=== PATIENT | male | born 1940 | race Caucasian/White ===

== ENCOUNTER 2016-12-29 14:24 | Inpatient (IN) | payer OTHER ==
[~2016-12-29] VITALS: Ht 170.2 cm; Wt 83.5 kg
[2016-12-29 15:11] LABS: BASOPHIL COUNT 0.1 K/uL (0-0.1); EOSINOPHIL (%) 3.4 % (0-5); EOSINOPHIL COUNT 0.5 K/uL (0-0.3); HEMATOCRIT 42.8 % (38.0-50.0); IMMATURE GRANULOCYTE (%) 0.5 % (0.0-0.7); IMMATURE GRANULOCYTE COUNT 0.1 K/uL; INSTRUMENT ABS NEUTROPHIL CT 11.6 K/uL; LYMPHOCYTE COUNT 1.3 K/uL (1.0-2.8); MCH 28.5 PG (29.0-34.0); MCHC 33.2 G/DL (30.0-36.0); MCV 85.9 FL (86-99); MEAN PLAT.VOLUME 9.3 uM^3 (9.0-12.4); MONOCYTE (%) 12.4 % (3-12); MONOCYTE COUNT 1.9 K/uL (0-0.8); NEUTROPHIL (%) 75.1 % (45-76); NEUTROPHIL COUNT 11.6 K/uL (1.8-6.4); PLATELET COUNT 331 K/uL (156-360); RBC DIS.WIDTH-CV 13.4 % (11.8-14.6); RBC DIS.WIDTH-SD 41.6 % (39-53); RED BLOOD COUNT 4.98 M/uL (4.00-5.50); WHITE BLOOD COUNT 15.4 K/uL (4.1-10.2)
[2016-12-29 15:19] LABS: INTER. NORMALIZED RATIO 1.2; PROTHROMBIN TIME 13.8 SEC (10.2-12.9)
[2016-12-29 15:21] LABS: CHLORIDE 102 mEq/L (99-109); POTASSIUM 4.2 mEq/L (3.7-5.4); SODIUM 138 mEq/L (136-147)
[2016-12-29 15:22] LABS: PTT 39.2 SEC (25-37)
[2016-12-29 15:23] LABS: GLUCOSE 208 mg/dL (70-99)
[2016-12-29 15:24] LABS: ANION GAP 13 MEQ/L (2-14)
[2016-12-29 15:27] LABS: GFR ESTIMATE (CALCULATED) > 59 mL/min/; UREA NITROGEN (BUN) 11 mg/dL (9-23)
[2016-12-29 15:32] LABS: TROP-I INTERPRETATION NEGATIVE; TROPONIN-I 0.02 ng/mL (0.0-0.30)
[2016-12-29] MEDS ORDERED: FOLIC ACID1 MG PO (18:59)
[2016-12-29] MEDS ORDERED: COMPAZINE10 MG PO (19:00)
[2016-12-29] MEDS ORDERED: DECADRON4 MG PO (19:01)
[2016-12-29] MEDS ORDERED: VENTOLIN HFA18 GM IH (19:01)
[2016-12-29] MEDS ORDERED: ADVAIR HFA120 INHALA IH (19:01)
[2016-12-29] MEDS ORDERED: ZOFRAN8 MG PO (19:01)
[2016-12-29] MEDS ORDERED: GLUCOSAMINE CH1 EAC7 PO (19:02)
[2016-12-29] MEDS ORDERED: CARVEDILOL3.125 MG PO (19:02)
[2016-12-29] MEDS ORDERED: VITAMIN D31000 UNIT PO (19:02)
[2016-12-29] MEDS ORDERED: LIPITOR40 MG PO (19:02)
[2016-12-29] MEDS ORDERED: GLUCOPHAGE500 MG PO (19:02)
[2016-12-29] MEDS ORDERED: CALCIUM-MAGNES1 EA11 PO (19:03)
[2016-12-29] MEDS ORDERED: TYLENOL EXTRA500 MG PO (19:03)
[2016-12-29 20:40] VITALS: BP 176/85
[2016-12-29 21:52] LABS: POINT-OF-CARE METER ID UU13113725
[2016-12-29 23:33] VITALS: BP 174/76
[2016-12-30 05:14] VITALS: BP 160/83
[2016-12-30 06:18] LABS: HEMATOCRIT 39.1 % (38.0-50.0); MCH 29.4 PG (29.0-34.0); MCHC 33.5 G/DL (30.0-36.0); MCV 87.7 FL (86-99); MEAN PLAT.VOLUME 9.3 uM^3 (9.0-12.4); PLATELET COUNT 298 K/uL (156-360); RBC DIS.WIDTH-CV 13.4 % (11.8-14.6); RBC DIS.WIDTH-SD 43.2 % (39-53); RED BLOOD COUNT 4.46 M/uL (4.00-5.50); WHITE BLOOD COUNT 12.4 K/uL (4.1-10.2)
[2016-12-30 06:47] LABS: ALKALINE PHOSPHATASE 112 IU/L (3-129); ANION GAP 11 MEQ/L (2-14); CHLORIDE 103 MEQ/L (99-109); GFR ESTIMATE (CALCULATED) > 59 mL/min/; GLUCOSE 132 mg/dL (70-99); POTASSIUM 3.9 MEQ/L (3.7-5.4); SAMPLE HEMOLYSIS CHECK 0; SAMPLE ICTERIC CHECK 0; SAMPLE LIPEMIA CHECK 0; SODIUM 143 MEQ/L (136-147); TOTAL BILIRUBIN 0.8 MG/DL (0.0-1.0); UREA NITROGEN (BUN) 9 mg/dL (9-23)
[2016-12-30 07:51] VITALS: BP 140/78
[2016-12-30 12:17] LABS: POINT-OF-CARE METER ID UU13113774
[2016-12-30 13:03] VITALS: BP 168/80
[2016-12-30 15:47] LABS: HDL CHOLESTEROL 41 MG/DL (Desirable>=40); LDL CHOLESTEROL 37 mg/dL (Desirable<100); NON-HDL CHOLESTEROL 57 mg/dL (Desirable<160); TOTAL CHOLESTEROL 98 mg/dL (Desirable<200); TRIGLYCERIDES 102 MG/DL (Normal: <150)
[2016-12-30 16:02] VITALS: BP 174/80
[2016-12-30 16:32] LABS: POINT-OF-CARE METER ID UU13113725
[2016-12-30 20:40] VITALS: BP 189/91
[2016-12-30 21:53] LABS: POINT-OF-CARE METER ID UU13113717
[2016-12-30 23:59] VITALS: BP 129/56; BP 162/79
[2016-12-31 00:24] VITALS: BP 179/84
[2016-12-31 06:07] LABS: ADD MIUA? NO; BILIRUBIN NEGATIVE; BLOOD NEGATIVE; COLOR YELLOW ((YELLOW)); GLUCOSE (STRIP) 150; KETONES 80; LEUKOCYTES NEGATIVE; NITRITE NEGATIVE; PROTEIN (STRIP) NEGATIVE; SPECIFIC GRAVITY 1.019 (1.000-1.030); UCUL ADDED? NO
[2016-12-31 06:49] LABS: BASOPHIL COUNT 0.1 K/uL (0-0.1); EOSINOPHIL (%) 7.4 % (0-5); EOSINOPHIL COUNT 0.9 K/uL (0-0.3); HEMATOCRIT 38.8 % (38.0-50.0); IMMATURE GRANULOCYTE (%) 0.4 % (0.0-0.7); IMMATURE GRANULOCYTE COUNT 0.1 K/uL; INSTRUMENT ABS NEUTROPHIL CT 7.7 K/uL; LYMPHOCYTE COUNT 1.3 K/uL (1.0-2.8); MCH 28.5 PG (29.0-34.0); MCV 86.4 FL (86-99); MEAN PLAT.VOLUME 9.2 uM^3 (9.0-12.4); MONOCYTE (%) 14.7 % (3-12); MONOCYTE COUNT 1.7 K/uL (0-0.8); NEUTROPHIL (%) 66.2 % (45-76); NEUTROPHIL COUNT 7.7 K/uL (1.8-6.4); PLATELET COUNT 329 K/uL (156-360); RBC DIS.WIDTH-CV 13.2 % (11.8-14.6); RBC DIS.WIDTH-SD 41.6 % (39-53); RED BLOOD COUNT 4.49 M/uL (4.00-5.50); WHITE BLOOD COUNT 11.6 K/uL (4.1-10.2)
[2016-12-31 07:04] VITALS: BP 163/77
[2016-12-31 07:35] LABS: POINT-OF-CARE METER ID UU13113717
[2016-12-31 07:42] LABS: ALKALINE PHOSPHATASE 105 IU/L (3-129); ANION GAP 10 MEQ/L (2-14); CHLORIDE 101 MEQ/L (99-109); GFR ESTIMATE (CALCULATED) > 59 mL/min/; GLUCOSE 115 mg/dL (70-99); POTASSIUM 3.8 MEQ/L (3.7-5.4); SAMPLE HEMOLYSIS CHECK 0; SAMPLE ICTERIC CHECK 0; SAMPLE LIPEMIA CHECK 0; SODIUM 140 MEQ/L (136-147); TOTAL BILIRUBIN 0.9 MG/DL (0.0-1.0); UREA NITROGEN (BUN) 11 mg/dL (9-23)
[2016-12-31 11:36] VITALS: BP 134/64
[2016-12-31 12:25] LABS: POINT-OF-CARE METER ID UU14188625
[2016-12-31 15:25] VITALS: BP 164/84
[2016-12-31 19:22] VITALS: BP 167/80
[2016-12-31 23:46] VITALS: BP 169/82
[2016-12-31 23:48] LABS: POINT-OF-CARE METER ID UU13113717
[2017-01-01 00:45] VITALS: BP 167/80
[2017-01-01 01:00] VITALS: BP 160/70
[2017-01-01 03:36] VITALS: BP 155/79
[2017-01-01 07:55] VITALS: BP 165/90
[2017-01-01 08:32] LABS: POINT-OF-CARE METER ID UU14188625
[2017-01-01 12:09] LABS: POINT-OF-CARE METER ID UU13113717
[2017-01-01] MEDS ORDERED: ASPIR-LOW81 MG PO (12:17)
[2017-01-01 12:20] LABS: Estimated Average Glucose 166 mg/dL (70-123); HEMOGLOBIN A1c (GLYCOHEMOGLOB) 7.4 % HGB (Below 5.7)
[2017-01-01 12:28] VITALS: BP 142/71
[2017-01-01] MEDS ORDERED: HEPARIN SO5000 UNIT3 SC (15:17)
[2017-01-01] MEDS ORDERED: SALINE FLUSH 5 M5 ML IV (15:19)
[2017-01-01] MEDS ORDERED: HEPARIN LOCK 1005 ML IV (15:19)
[2017-01-01] MEDS ORDERED: NOVOLOG100 UNIT/1 SC (15:20)
[2017-01-01] MEDS ORDERED: ANTIVERT25 MG PO (15:21)
== END 2017-01-01 14:10 | DRG 64 ==
LOC: EME 14:24 → EDOF 19:27 → 5SOUTH 19:27 → ENRESERV 19:30 → 5EAST 19:56 → EDOF 20:00 → ENRESERV 20:00 → 5EAST 20:36 → CANRESERV 12-30 18:08 → ENRESERV 12-30 18:08 → 5SOUTH 12-30 20:28
PROVIDERS: Emergency Medicine; Hospitalist; Internal Medicine
DX: I63.9 Cerebral infarction, unspecified (principal); J96.01 Acute respiratory failure with hypoxia; E11.9 Type 2 diabetes mellitus without complications; I48.91 Unspecified atrial fibrillation; C34.91 Malignant neoplasm of unspecified part of right bronchus or lung; Z68.28 Body mass index [BMI] 28.0-28.9, adult; Z85.118 Personal history of other malignant neoplasm of bronchus and lung; Z86.73 Personal history of transient ischemic attack (TIA), and cerebral infarction without residual deficits
CPT/HCPCS: 70450; 70551; 71010; 71275; 80048; 80053; 80061; 81003; 82948; 83036; 84484; 85025; 85027; 85610; 85730; 93005; 94640; 94799; 99202; 99281; 99285; J1644; J1815; J2405; J7030; S0028

== ENCOUNTER 2017-01-01 12:53 | Inpatient (IN) | payer OTHER ==
[~2017-01-01] VITALS: Ht 170.2 cm; Wt 81.0 kg
[~2017-01-01 12:53] MED LIST: ADVAIR HFA120 INHALA IH; ASPIR-LOW81 MG PO; CALCIUM-MAGNES1 EA11 PO; CARVEDILOL3.125 MG PO; COMPAZINE10 MG PO; DECADRON4 MG PO; FOLIC ACID1 MG PO; GLUCOPHAGE500 MG PO; GLUCOSAMINE CH1 EAC7 PO; LIPITOR40 MG PO; TYLENOL EXTRA500 MG PO; VENTOLIN HFA18 GM IH; VITAMIN D31000 UNIT PO; ZOFRAN8 MG PO
[2017-01-01 14:20] VITALS: BP 171/78
[2017-01-01] MEDS ORDERED: HEPARIN SO5000 UNIT3 SC (15:17)
[2017-01-01] MEDS ORDERED: SALINE FLUSH 5 M5 ML IV (15:19)
[2017-01-01] MEDS ORDERED: HEPARIN LOCK 1005 ML IV (15:19)
[2017-01-01] MEDS ORDERED: NOVOLOG100 UNIT/1 SC (15:20)
[2017-01-01] MEDS ORDERED: ANTIVERT25 MG PO (15:21)
[2017-01-01 17:00] LABS: POINT-OF-CARE METER ID UU14174215
[2017-01-01 17:14] VITALS: BP 152/74
[2017-01-01 20:41] LABS: POINT-OF-CARE METER ID UU14174215
[2017-01-01 23:06] VITALS: BP 137/77
[2017-01-02 04:52] LABS: HEMATOCRIT 42.8 % (38.0-50.0); MCH 28.9 PG (29.0-34.0); MCHC 33.9 G/DL (30.0-36.0); MCV 85.4 FL (86-99); PLATELET COUNT 354 K/uL (156-360); RBC DIS.WIDTH-CV 13.2 % (11.8-14.6); RBC DIS.WIDTH-SD 41.2 % (39-53); RED BLOOD COUNT 5.01 M/uL (4.00-5.50); WHITE BLOOD COUNT 10.6 K/uL (4.1-10.2)
[2017-01-02 05:03] LABS: CHLORIDE 99 mEq/L (99-109); POTASSIUM 3.8 mEq/L (3.7-5.4); SODIUM 139 mEq/L (136-147)
[2017-01-02 05:05] LABS: GLUCOSE 126 mg/dL (70-99)
[2017-01-02 05:06] LABS: ANION GAP 12 MEQ/L (2-14)
[2017-01-02 05:07] LABS: TOTAL BILIRUBIN 0.9 mg/dL (0.0-1.0)
[2017-01-02 05:08] LABS: ALKALINE PHOSPHATASE 109 IU/L (3-129)
[2017-01-02 05:09] LABS: GFR ESTIMATE (CALCULATED) > 59 mL/min/
[2017-01-02 05:10] LABS: UREA NITROGEN (BUN) 13 mg/dL (9-23)
[2017-01-02 05:50] VITALS: BP 142/70
[2017-01-02 07:03] LABS: POINT-OF-CARE METER ID UU14174215
[2017-01-02 11:11] LABS: POINT-OF-CARE METER ID UU14174215
[2017-01-02 15:22] VITALS: BP 144/73
[2017-01-02 16:42] LABS: POINT-OF-CARE METER ID UU13113720
[2017-01-02 20:48] LABS: POINT-OF-CARE METER ID UU14174215
[2017-01-03 04:50] VITALS: BP 157/84
[2017-01-03 07:10] LABS: POINT-OF-CARE METER ID UU14174215; POINT-OF-CARE USER ID AHSSSJB31
[2017-01-03 07:25] VITALS: BP 152/76
[2017-01-03 11:12] LABS: POINT-OF-CARE METER ID UU14174215; POINT-OF-CARE USER ID AHSSSJB31
[2017-01-03 15:23] VITALS: BP 138/74
[2017-01-03 16:32] LABS: POINT-OF-CARE METER ID UU13113720
[2017-01-04 05:20] VITALS: BP 136/92
[2017-01-04 07:09] LABS: POINT-OF-CARE METER ID UU14174215
[2017-01-04 07:33] VITALS: BP 144/70
[2017-01-04 15:05] VITALS: BP 154/71
[2017-01-04 16:13] LABS: POINT-OF-CARE METER ID UU13113720
[2017-01-05 04:16] VITALS: BP 138/76
[2017-01-05 06:56] LABS: POINT-OF-CARE METER ID UU13113720
[2017-01-05 14:56] VITALS: BP 145/77
[2017-01-05 15:58] LABS: POINT-OF-CARE METER ID UU13113720
[2017-01-06 04:28] VITALS: BP 122/62
[2017-01-06 09:24] LABS: POINT-OF-CARE METER ID UU13113720; POINT-OF-CARE USER ID ENVGAF
[2017-01-06 15:02] VITALS: BP 134/79
[2017-01-06 16:05] LABS: POINT-OF-CARE METER ID UU13113720
[2017-01-07 04:56] VITALS: BP 142/70
[2017-01-07 06:39] LABS: POINT-OF-CARE METER ID UU13113720; POINT-OF-CARE USER ID ENVGAF
[2017-01-07 15:13] VITALS: BP 135/74
[2017-01-07 16:48] LABS: POINT-OF-CARE METER ID UU13113720
[2017-01-07 20:58] LABS: HEMATOCRIT 41.6 % (38.0-50.0); MCH 28.5 PG (29.0-34.0); MCHC 33.2 G/DL (30.0-36.0); PLATELET COUNT 321 K/uL (156-360); RBC DIS.WIDTH-CV 13.7 % (11.8-14.6); RBC DIS.WIDTH-SD 42.2 % (39-53); RED BLOOD COUNT 4.84 M/uL (4.00-5.50); WHITE BLOOD COUNT 10.5 K/uL (4.1-10.2)
[2017-01-07 21:22] LABS: ANION GAP 10 MEQ/L (2-14); CHLORIDE 101 MEQ/L (99-109); GFR ESTIMATE (CALCULATED) > 59 mL/min/; GLUCOSE 119 mg/dL (70-99); POTASSIUM 3.7 MEQ/L (3.7-5.4); SAMPLE HEMOLYSIS CHECK 0; SAMPLE ICTERIC CHECK 0; SAMPLE LIPEMIA CHECK 0; SODIUM 136 MEQ/L (136-147); UREA NITROGEN (BUN) 13 mg/dL (9-23)
[2017-01-07] MEDS ORDERED: LIPITOR40 MG PO (22:17)
[2017-01-07] MEDS ORDERED: CARVEDILOL3.125 MG PO (22:17)
[2017-01-07] MEDS ORDERED: ASPIR-LOW81 MG PO (22:17)
[2017-01-07] MEDS ORDERED: ADVAIR HFA120 INHALA IH (22:17)
[2017-01-07] MEDS ORDERED: ANTIVERT25 MG PO (22:17)
[2017-01-07] MEDS ORDERED: GLUCOPHAGE500 MG PO (22:17)
[2017-01-07] MEDS ORDERED: VENTOLIN HFA18 GM IH (22:17)
[2017-01-08 05:07] VITALS: BP 133/78
[2017-01-08 06:52] LABS: POINT-OF-CARE METER ID UU14174215
== END 2017-01-08 15:33 | DRG 57 ==
LOC: 3WEST 12:53
PROVIDERS: Physical Medicine & Rehabilitation Pain Medicine
PROC: F07M0ZZ Range of Motion and Joint Mobility Treatment of Musculoskeletal System - Whole Body (ICD-10-PCS; principal; 2017-01-01)
DX: I69.351 Hemiplegia and hemiparesis following cerebral infarction affecting right dominant side (principal); R26.2 Difficulty in walking, not elsewhere classified; C34.91 Malignant neoplasm of unspecified part of right bronchus or lung; J91.0 Malignant pleural effusion; C77.1 Secondary and unspecified malignant neoplasm of intrathoracic lymph nodes; E88.09 Other disorders of plasma-protein metabolism, not elsewhere classified; I10 Essential (primary) hypertension; E11.9 Type 2 diabetes mellitus without complications; I48.0 Paroxysmal atrial fibrillation; J45.909 Unspecified asthma, uncomplicated; Z88.0 Allergy status to penicillin; Z91.040 Latex allergy status
CPT/HCPCS: 71020; 80048; 80053; 82948; 85027; 94640 76; 97110 GO; 97530 GP; J1644; J1815; J8540